=== PATIENT | female | born 1965 | race Caucasian/White ===

== ENCOUNTER 2022-08-31 11:08 | Outpatient (CLI) | payer OTHER, MEDICAID, SELFPAY ==
--- NOTE | ~2022-08-31 | XR_ITS ---
XR chest 2V DATE: 08/31/2022 11:22 INDICATION: Cough for 2 weeks. TECHNIQUE: PA and lateral views COMPARISON: None FINDINGS: Normal heart size. No hilar or mediastinal enlargement. The lungs are hyperinflated suggest ing COPD. No pulmonary infiltrate or consolidation, pleural effusion or pulmonary vascular congestion or pneumothorax is detected. Moderate sliding hiatal hernia. IMPRESSION: COPD; no active cardiopulmonary disease Moderate sliding hiatal hernia Reviewed, dictated and finalized at location B.
== END 2022-08-31 11:09 | disposition home or self-care (01) ==
LOC: CHSIMG 11:11
PROVIDERS: PCP Physician Assistant; Visit Provider Nurse Practitioner Family
DX: R06.09 Other forms of dyspnea (principal); R05.9 Cough, unspecified; J44.9 Chronic obstructive pulmonary disease, unspecified; K44.9 Diaphragmatic hernia without obstruction or gangrene
CPT/HCPCS: 71046

== ENCOUNTER 2022-10-13 11:59 | Outpatient (CLI) | payer OTHER, SELFPAY ==
[2022-10-13 12:17] LABS: Basophils Absolute Auto 0.08 K/mm3 (0.00-0.10); Eosinophils Absolute Auto 0.55 K/mm3 (0.02-0.50); Eosinophils Percent Auto 6.9 % (1.0-6.0); Hematocrit 38.1 % (35.0-49.0); Hemoglobin 12.7 g/dL (12.0-15.0); Immature Granulocyte Absolute 0.04 K/mm3 (0.00-0.00); Immature Granulocyte Percent A 0.5 % (0.0-0.0); Lymphocytes Absolute Auto 1.45 K/mm3 (1.10-4.50); Lymphocytes Percent Auto 18.2 % (18.0-42.0); Mean Corpuscular HGB Conc 33.3 g/dL (32.0-36.0); Mean Corpuscular Hemoglobin 33.6 pg (27.0-31.0); Mean Corpuscular Volume 100.8 fL (78.0-102.0); Mean Platelet Volume 8.1 fl (9.2-11.8); Monocytes Absolute Auto 0.72 K/mm3 (0.10-0.90); Neutrophils Absolute Auto 5.1 K/mm3 (1.7-7.2); Neutrophils Percent Auto 64.4 % (50.0-70.0); Platelet Count Result 331 K/mm3 (150-420); Red Blood Count 3.78 M/mm3 (4.20-5.40); Red Cell Distribution Width 11.9 % (11.6-14.4)
[2022-10-13 12:21] VITALS: PULSE 84; O2SAT 97
[2022-10-13 12:27] VITALS: PULSE 92; O2SAT 94
--- NOTE | 2022-10-13 13:33 | SIXMINWLK ---
Six Minute Walk Test PFT: Six Minute Walk Start: 10/13/22 13:02 Freq: Status: Active Protocol: RPE Activity Type Activity Date Activity User E-sign Co-sign Detail Recorded Client Recorded Date Recorded By Document 10/13/22 12:21 YANI [id number] 10/13/22 13:33 [employer] Document 10/13/22 12:27 YANI [id number] 10/13/22 13:33 KAB 10/13/22 10/13/22 12:21 12:27 Six Minute Walk Gender F F Age [age] Race White White Six Minute Walk Baseline -Pulse Rate (60-100 beats/min) 84 92 -Pulse Oximetry (90-100 %) 97 94 Number of Complete Laps ( 1 Lap = 100 500 Feet, Enter Total Feet) Number of Partial Laps (In Feet) 30 Total Distance Walked (Feet) 530 Six Minute Walk Comments Patient walked 530 feet. No noticeable shortness of breath. No drop in saturations .
--- NOTE | 2022-10-22 12:37 | WPDPFTINT ---
PFT Procedure Performed PFT Procedure Performed Spirometry with Pre/Post Bronchodilator Plethysmography (Lung Vol) Diffusing Cap (DLCO) Flow Vol Loop PFT Interpretation DOS: 10/13/2022 REQUESTING: Martínez Black APRN REASON FOR TESTING: Asthma PULMONARY FUNCTION TESTS Results are reliable and reproducible. Spirometry: The pre bronchodilator FEV1 is 1.5 L, 57% predicted, moderately reduced. The pre bronchodilator FEV1 is 3.17 L, 97%, normal. The FEV1/FVC ratio is 47% reduced. After bronchodilator there is a 21% increase in FEV1, 1.81 L, 69%. There is an 11% increase in the FVC, 3.53 L, 106% predicted. These are significant increases. The FEV1/FVC ratio after bronchodilators 51%. Lung volumes: Total lung capacity is 5.11 L, 111%, normal. The residual volume is 2.93 L, 142% predicted, consistent with moderate air trapping. The RV/TLC is increased, 48%. Airway resistance greatly elevated, 501%. Diffusion: DLCO is 20, 97% predicted, normal. DLCO/VA is 3.83, 99%, normal. Flow volume loop: There is scooping of the expiratory limb consistent with airflow obstruction. IMPRESSION: There is a moderate obstructive ventilatory impairment with an excellent response to bronchodilator. There is moderate air trapping. Normal diffusion. This pattern is consistent with asthma in the proper clinical setting. No prior studies available for review. Farhana Lopez MD
== END 2022-10-13 12:00 | disposition home or self-care (01) ==
PROVIDERS: PCP Physician Assistant; Visit Provider Nurse Practitioner Family
DX: J45.909 Unspecified asthma, uncomplicated (principal); R06.09 Other forms of dyspnea
CPT/HCPCS: 36415; 85025; 94060; 94726; 94729

== ENCOUNTER 2022-10-30 09:18 | Outpatient (CLI) | payer OTHER, SELFPAY | END 2022-10-30 09:19 | disposition home or self-care (01) | LOC: CHSLAB 09:20 | PROVIDERS: PCP Nurse Practitioner Family; Visit Provider Nurse Practitioner Family | DX: J45.909 Unspecified asthma, uncomplicated (principal) | CPT/HCPCS: 36415; 82785; 86003 ==

== ENCOUNTER 2023-12-31 13:35 | Outpatient (CLI) | payer OTHER, SELFPAY ==
[2023-12-31 13:46] LABS: Basophils Absolute Auto 0.13 K/mm3 (0.00-0.10); Basophils Percent Auto 1.5 % (0.0-1.0); Eosinophils Absolute Auto 0.68 K/mm3 (0.02-0.50); Eosinophils Percent Auto 7.9 % (1.0-6.0); Hematocrit 43.1 % (35.0-49.0); Immature Granulocyte Absolute 0.03 K/mm3 (0.00-0.00); Immature Granulocyte Percent A 0.4 % (0.0-0.0); Lymphocytes Absolute Auto 1.59 K/mm3 (1.10-4.50); Lymphocytes Percent Auto 18.6 % (18.0-42.0); Mean Corpuscular HGB Conc 34.8 g/dL (32-36); Mean Corpuscular Hemoglobin 32.5 pg (27.0-31.0); Mean Corpuscular Volume 93.3 fL (78.0-102.0); Mean Platelet Volume 8.1 fl (9.2-11.8); Monocytes Absolute Auto 0.99 K/mm3 (0.10-0.90); Monocytes Percent Auto 11.6 % (2.0-11.0); Neutrophils Absolute Auto 5.14 K/mm3 (1.70-7.20); Platelet Count Result 363 K/mm3 (150-420); Red Blood Count 4.62 M/mm3 (4.20-5.40); Red Cell Distribution Width 11.7 % (11.6-14.4); White Blood Count 8.6 K/mm3 (4.8-10.8)
== END 2023-12-31 13:36 | disposition home or self-care (01) ==
LOC: CHSLAB 13:37
PROVIDERS: PCP Nurse Practitioner Family; Visit Provider Nurse Practitioner Family
DX: J45.909 Unspecified asthma, uncomplicated (principal)
CPT/HCPCS: 36415; 85025

== ENCOUNTER 2024-03-24 13:39 | Outpatient (CLI) | payer OTHER, SELFPAY ==
--- NOTE | ~2024-03-24 | XR_ITS ---
Clinical Indication: Cough PA and lateral views of the chest: Comparison: 08/31/2022 Findings: The lungs are clear, without evidence of focal consolidation or pleural effusion. Cardiome diastinal silhouette is within normal limits. Stable small to moderate hiatal hernia. Osseous structu res intact. Impression: Clear lungs. Stable small to moderate hiatal hernia. Reviewed, dictated and finalized at location . Impression: Clear lungs. Stable small to moderate hiatal hernia.
== END 2024-03-24 13:40 | disposition home or self-care (01) ==
LOC: CHSIMG 13:41
PROVIDERS: PCP Nurse Practitioner Family; Visit Provider Nurse Practitioner Family
DX: R05.9 Cough, unspecified (principal); K44.9 Diaphragmatic hernia without obstruction or gangrene
CPT/HCPCS: 71046

== ENCOUNTER 2024-10-20 10:37 | Outpatient (CLI) | payer OTHER, SELFPAY ==
--- OUTSIDE RECORDS SUMMARY | 2024-10-20 10:40 | XMS_ITS ---
Author Organization Unknown Address [address] [place] [phone] Phone Care Team Providers Care Automation Operator Name Role Phone DAQUAN MARQUEZ Attending Unavailable IBETH TRAN PA-C Primary Unavailable Immunization Immunization Date Status Additional Notes Code Code System COVID-19, mRNA, LNP-S, PF, 1 00 mcg/0.5mL dose or 50 mcg/0.25mL dose 01/09/2021 Completed 207 CVX COVID-19, mRNA, LNP-S, PF, 1 00 mcg/0.5mL dose or 50 mcg/0.25mL dose 02/11/2021 Completed 207 CVX Social History Type Status Start Date End Date Code Code Syst em Smoking History Current every day smoker 757802692 SNOMED CT Sex Female Medications Medication Start Date End Date Route Frequency Dose Code Code System Medication Instructions Home Meds HYDROcodone bitartrate-acetaminophen 5MG-325MG Oral Tablet 09/04/2024 Unknown BY MOUTH NEEDED EVERY 4 HOURS 1 TABLET 420426 RxNorm TAKE 1 TABLET BY MOUTH NEEDED EVERY 4 HOURS FOR PAIN Airsupra 90 MCG/1 Actuation-80 MCG/1 Actuation Inhalation Aerosol Powder 09/04/2024 Unknown INHALA TION ONCE A DAY 1 unit(s) 9351832 RxNorm 1 EACH INHALAT ION ONCE A DAY Alendronate Sod 70MG Oral Tablet 09/04/2024 Unknown ORAL ONCE A WEEK 70 MILLIGR AMS RxNorm TAKE 70 MILLIGR AMS ORAL ONCE A WEEK Cymbalta 30MG Oral Capsule, Delayed Release 09/04/2024 Unknown ORAL ONCE A DAY 30 MILLIGR AMS 349852 RxNorm TAKE 30 MILLIGR AMS ORAL ONCE A DAY Cymbalta 60MG Oral Capsule, Delayed Release 09/04/2024 Unknown ORAL ONCE A DAY 60 MILLIGR AMS 096002 RxNorm TAKE 60 MILLIGR AMS ORAL ONCE A DAY Gabapentin 600MG Oral Tablet 09/04/2024 Unknown ORAL FOUR TIMES A DAY 900 MILLIGR AMS 031625 RxNorm TAKE 900 MILLIGR AMS ORAL FOUR TIMES A DAY Hyzaar 100MG-25MG Oral Tablet 09/04/2024 Unknown ORAL ONCE A DAY 1 unit(s) 868829 RxNorm TAKE 1 EACH ORAL ONCE A DAY LORazepam 0.5 MG Oral Tablet 09/04/2024 Unknown ORAL NEEDED 0.5 MILLIGR AMS RxNorm TAKE 0.5 MILLIGR AMS ORAL NEEDED Lasix 20MG Oral Tablet 09/04/2024 Unknown ORAL NEEDED DAILY 20 MILLIGR AMS RxNorm TAKE 20 MILLIGR AMS ORAL NEEDED DAILY Omeprazole 40MG Oral Capsule, Delayed Release 09/04/2024 Unknown ORAL ONCE A DAY 40 MILLIGR AMS 20020723 RxNorm TAKE 40 MILLIGR AMS ORAL ONCE A DAY SUMAtriptan Succinate 25MG Oral Tablet 09/04/2024 Unknown ORAL NEEDED 25 MILLIGR AMS 122141 RxNorm TAKE 25 MILLIGR AMS ORAL NEEDED Symbicort 80/4.5 80MCG-4.5MCG/1 Actua Inhalation Aerosol Liquid 09/04/2024 Unknown INHALA TION TWICE A DAY 2 unit(s) 6170164 RxNorm 2 EACH INHALAT ION TWICE A DAY Ventolin HFA 0.09MG/1Actuation Inhalation Suspension 09/04/2024 Unknown INHALA TION NEEDED EVERY 4 HOURS 2 unit(s) 966852 RxNorm 2 EACH INHALAT ION NEEDED EVERY 4 HOURS Vitamin D 2000 IU Oral Capsule, Liquid Filled 09/04/2024 Unknown ORAL ONCE A DAY 2000 IU 018814 RxNorm TAKE 2000 IU ORAL ONCE A DAY diphenhydrAMINE 25MG Oral Capsule 09/04/2024 Unknown ORAL NEEDED EVERY 6 HOURS 25 MILLIGR AMS 0288829 RxNorm TAKE 25 MILLIGR AMS ORAL NEEDED EVERY 6 HOURS Ferrous Sulfate 325 MG Oral Tablet, Enteric Coated 09/04/2024 Unknown BY MOUTH ONCE A DAY 1 TABLET 841193 RxNorm TAKE 1 TABLET BY MOUTH ONCE A DAY Assessment You had the following problems:FIBROMYALGIA Hospital Discharge Instructions Should you have any questions prior to discharge, please contact a member of your healthcare team. If you have left the hospital and have any questions, please contact your primary care physician. 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 (SNOMED-CT: null) Active 746467 RxNorm CONTRAST MEDIA, IODINE RELATED anaphylaxis (SNOMED-CT: null) Active 038003113 SNOMED-CT CONTRAST ALLERGY PREMED PACK Moderate Active Plan of Treatment Casie New Patient Visit 09/28/2023 Stress Test Treadmill 09/30/2023 Casie Established Visit 11/30/2023 EGD/Lap Felicity w/IOC 02/28/2024 Cholangiography Intraoperative 02/28/20 24 EGD/Lap Felicity w/IOC 02/28/2024 Cholangiography Intraoperative 02/28/20 24 NM Hepatobiliary Gall Bladder (04720) 0 02/02/2024 EGD/Lap Felicity w/IOC 09/04/2024 Cholangiography Intraoperative 09/05/19 25 EGD/Lap Felicity w/IOC 09/04/2024 Cholangiography Intraoperative 09/05/19 25 US Abdomen Complete (55059) 01/17/2024 Encounters Encounter Diagnosis Start Date Code Code Sys tem Palpitations 08/24/2023 SNMD-IT-CT Personal Care Team Section Performer Name Performer Role Active Date Inactive CHELSEA Felton PCP - Primary care physician 2023-11-30
--- OUTSIDE RECORDS SUMMARY | 2024-10-20 10:41 | XMS_ITS ---
Author Organization Unknown Address [address] [place] [phone] Phone Care Team Providers Care Pharmacy Salesperson Name Role Phone ELSA MARK Attending Unavailable IBETH TRAN PA-C Primary Unavailable Immunization Immunization Date Status Additional Notes Code Code System COVID-19, mRNA, LNP-S, PF, 1 00 mcg/0.5mL dose or 50 mcg/0.25mL dose 01/09/2021 Completed 207 CVX COVID-19, mRNA, LNP-S, PF, 1 00 mcg/0.5mL dose or 50 mcg/0.25mL dose 02/11/2021 Completed 207 CVX Results CBC W/ DIFF - Collect Date/T marcos: 09/28/2023 10:19 [facility] ID: [id number] [place], [place], [id number] LOINC: 59381-9 Test Value Unit Reference Range Code Code System Flag WBC 7.3 10^3uL L=4.8 H=10.8 RBC 4.86 10^6uL L=4.20 H=5.40 HEMOGLOBIN 14.9 g/dL L=12.0 H=16.0 718-7 LOINC HEMATOCRIT 42.6 VOL% L=37.0 H=47.0 4544-3 LOINC MCV 87.7 fL L=81.0 H=99.0 MCH 30.7 pg L=27.0 H=32.0 MCHC 35.0 g/dL L=32.0 H=36.0 PLATELETS 322 10^3uL L=100 H=400 41331-5 LOINC RDW 15.2 % L=11.7 H=15.5 %GRAN 72.1 % L=40.0 H=70.0 93396-7 LOINC H %LYMPH 16.4 % L=20.0 H=45.0 736-9 LOINC L %MONO 7.4 % L=2.0 H=10.0 14630-0 LOINC %EOS 2.5 % L=0.0 H=6.0 713-8 LOINC %BASO 1.2 % L=0.0 H=3.0 706-2 LOINC #NEUT 5.3 10^3uL L=1.9 H=7.6 70539-4 LOINC #LYMPH 1.2 10^3uL L=0.9 H=4.9 86943-8 LOINC #MONO 0.5 10^3uL L=0.1 H=0.9 96287-6 LOINC #EOS 0.2 10^3uL L=0.0 H=0.6 712-0 LOINC #BASO 0.09 10^3uL L=0.00 H=0.10 97483-2 LOINC #IM GRANS 0.0 10^3uL L=0.0 H=7.0 06106-7 LOINC %IM GRANS 0.4 % L=0.0 H=5.0 95906-7 LOINC %NRB 0.0 L=0.0 H=0.2 31306-2 LOINC #NRB 0.000 L=0.000 H=0.012 87796-0 LOINC MANUAL DIFF NOT INDICATED RBC MORPH NOT INDICATED CPK - Collect Date/Time: 10:19 [facility] ID: [id number] [place], [place], [id number] LOINC: 2156-6 Test Value Unit Reference Range Code Code System Flag CPK 264 U/L L=30 H=170 2157-6 LOINC H MAGNESIUM - Collect Date/Gerald e: 09/28/2023 10:19 [facility] ID: [id number] [place], [place], [id number] LOINC: 01663-5 Test Value Unit Reference Range Code Code System Flag MAGNESIUM 1.7 mg/dL L=1.6 H=2.3 53682-0 LOINC PHOSPHORUS - Collect Date/Ti me: 09/28/2023 10:19 [facility] ID: [id number] [place], [place], [id number] LOINC: 2777-1 Test Value Unit Reference Range Code Code System Flag PHOSPHORUS 4.8 mg/dL L=2.5 H=4.9 2777-1 LOINC COMPREHENSIVE METABOLIC PANE L - Collect Date/Time: 09/28/2023 10:19 [facility] ID: [id number] [place], [place], [id number] LOINC: 58516-8 Test Value Unit Reference Range Code Code System Flag FASTING NO BUN 9 mg/dL L=7 H=20 3094-0 LOINC CREATININE 0.70 mg/dL L=0.52 H=1.04 2160-0 LOINC GLUCOSE 111 mg/dL L=74 H=106 2345-7 LOINC H SODIUM 135 mmol/L L=132 H=144 2951-2 LOINC POTASSIUM 3.5 mmol/L L=3.5 H=5.1 2823-3 LOINC CHLORIDE 99 mmol/L L=98 H=107 2075-0 LOINC CO2 28.0 mmol/L L=22.0 H=30.0 8-9 LOINC ANION GAP 12 L=10 H=20 52604-9 LOINC OSMOLALITY 279 mOs/kG L=280 H=296 15288-1 LOINC L BUN/CREAT 12.9 3097-3 LOINC CALCIUM 10.3 mg/dL L=8.3 H=10.5 07983-7 LOINC AST 31 U/L L=15 H=46 1920-8 LOINC ALT 20 U/L L=9 H=72 1742-6 LOINC ALKALINE PHOS 65 U/L L=38 H=126 6768-6 LOINC TOTAL BILI 0.6 mg/dL L=0.2 H=1.3 1975-2 LOINC ALBUMIN 4.7 G/dL L=3.5 H=5.0 1751-7 LOINC TOTAL PROTEIN 7.7 g/L L=6.3 H=8.2 2885-2 LOINC A/G RATIO 1.6 27722-6 LOINC AGE 57 16421-8 LOINC eGFR NON-AFR 91 ml/min eGFR AFR AMER 110 ml/min TSH - Collect Date/Time: 10:19 [facility] ID: [id number] [place], [place], [id number] LOINC: 23531-2 Test Value Unit Reference Range Code Code System Flag TSH. 0.785 uIU/L L=0.470 H=4.680 97803-5 LOINC Social History Type Status Start Date End Date Code Code Syst em Smoking History Current every day smoker [id number] SNOMED CT Sex Female Vital Signs Vital Sign Value Unit [place] Value [place] Unit Date/Time Recent/Initial? Code Code System Body Mass Index 22.55 kg/m2 09/28/2023 09:07 Initial 74607 -5 LOINC Systolic Blood Pressure 143 mm[Hg] 09/28/2023 09:06 Initial 8480- 6 LOINC Diastolic Blood Pressure 84 mm[Hg] 09/28/2023 09:06 Initial 8462- 4 LOINC Body Surface Area 1.76 m2 09/28/2023 09:07 Initial 3140- 1 LOINC Height 170.180 0 cm 67.00 in 09/28/2023 09:07 Initial 8302- 2 LOINC O2 Saturation 96 % 2023 09:06 Initial 97654 -5 LOINC Pulse 110.0 /min 09/28/2023 09:06 Initial 8867- 4 LOINC Respiration 20 /min 09/28/19 09:06 Initial 9279- 1 LOINC Temperature 35.9 Melinda 96.6 F 09/28/19 24 09:06 Initial 8310- 5 LOINC Weight 65.32 kg 144.00 lbs 09/28/2023 09:07 Initial 61444 -7 LOINC Medications Medication Start Date End Date Route Frequency Dose Code Code System Medication Instructions Home Meds HYDROcodone bitartrate-acetaminophen 5MG-325MG Oral Tablet 09/04/2024 Unknown BY MOUTH NEEDED EVERY 4 HOURS 1 TABLET 505244 RxNorm TAKE 1 TABLET BY MOUTH NEEDED EVERY 4 HOURS FOR PAIN Airsupra 90 MCG/1 Actuation-80 MCG/1 Actuation Inhalation Aerosol Powder 09/04/2024 Unknown INHALA TION ONCE A DAY 1 unit(s) 2957414 RxNorm 1 EACH INHALAT ION ONCE A DAY Alendronate Sod 70MG Oral Tablet 09/04/2024 Unknown ORAL ONCE A WEEK 70 MILLIGR AMS RxNorm TAKE 70 MILLIGR AMS ORAL ONCE A WEEK Cymbalta 30MG Oral Capsule, Delayed Release 09/04/2024 Unknown ORAL ONCE A DAY 30 MILLIGR AMS 631813 RxNorm TAKE 30 MILLIGR AMS ORAL ONCE A DAY Cymbalta 60MG Oral Capsule, Delayed Release 09/04/2024 Unknown ORAL ONCE A DAY 60 MILLIGR AMS 053895 RxNorm TAKE 60 MILLIGR AMS ORAL ONCE A DAY Gabapentin 600MG Oral Tablet 09/04/2024 Unknown ORAL FOUR TIMES A DAY 900 MILLIGR AMS 847250 RxNorm TAKE 900 MILLIGR AMS ORAL FOUR TIMES A DAY Hyzaar 100MG-25MG Oral Tablet 09/04/2024 Unknown ORAL ONCE A DAY 1 unit(s) 419445 RxNorm TAKE 1 EACH ORAL ONCE A [...] 09/04/2024 Unknown ORAL NEEDED 25 MILLIGR AMS 249893 RxNorm TAKE 25 MILLIGR AMS ORAL NEEDED Symbicort 80/4.5 80MCG-4.5MCG/1 Actua Inhalation Aerosol Liquid 09/04/2024 Unknown INHALA TION TWICE A DAY 2 unit(s) 6531129 RxNorm 2 EACH INHALAT ION TWICE A DAY Ventolin HFA 0.09MG/1Actuation Inhalation Suspension 09/04/2024 Unknown INHALA TION NEEDED EVERY 4 HOURS 2 unit(s) 175346 RxNorm 2 EACH INHALAT ION NEEDED EVERY 4 HOURS Vitamin D 2000 IU Oral Capsule, Liquid Filled 09/04/2024 Unknown ORAL ONCE A DAY 2000 IU 039519 RxNorm TAKE 2000 IU ORAL ONCE A DAY diphenhydrAMINE 25MG Oral Capsule 09/04/2024 Unknown ORAL NEEDED EVERY 6 HOURS 25 MILLIGR AMS 0891592 RxNorm TAKE 25 MILLIGR AMS ORAL NEEDED EVERY 6 HOURS Ferrous Sulfate 325 MG Oral Tablet, Enteric Coated 09/04/2024 Unknown BY MOUTH ONCE A DAY 1 TABLET 779544 RxNorm TAKE 1 TABLET BY MOUTH ONCE A DAY Assessment You had the following problems:FIBROMYALGIA Hospital Discharge Instructions Should you have any questions prior to discharge, please contact a member of your healthcare team. If you have left the hospital and have any questions, please contact your primary care physician. Reason For Referral No Data Found Procedures Procedure Name Date Status Code Code Syste m Rotator cuff completed 8659064 SNOMEDCT Problems Problem Start Date Resolved Date Status Code Code System FIBROMYALGIA active 851902659 SNOMED- CT Allergies and Adverse Reactions Allergy Substance Reaction Severity Start Date Concern Status Code Code System 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 (SNOMED-CT: null) Active 610798 RxNorm CONTRAST MEDIA, IODINE RELATED anaphylaxis (SNOMED-CT: null) Active 936069035 SNOMED-CT CONTRAST ALLERGY PREMED PACK Moderate Active Plan of Treatment Elsa New Patient Visit 09/28/2023 Stress Test Treadmill 09/30/2023 Elsa Established Visit 11/30/2023 EGD/Lap Felicity w/IOC 02/28/2024 Cholangiography Intraoperative 02/28/20 24 EGD/Lap Felicity w/IOC 02/28/2024 Cholangiography Intraoperative 02/28/20 24 NM Hepatobiliary Gall Bladder (27379) 0 02/02/2024 EGD/Lap Felicity w/IOC 09/04/2024 Cholangiography Intraoperative 09/05/19 25 EGD/Lap Felicity w/IOC 09/04/2024 Cholangiography Intraoperative 09/05/19 25 US Abdomen Complete (80914) 01/17/2024 Encounters Encounter Diagnosis Start Date Code Code Sys tem Fibromyalgia 09/28/2023 SNOMED-CT Personal Care Team Section Performer Name Performer Role Active Date Inactive CHELSEA Felton PCP - Primary care physician 2023-11-30
--- OUTSIDE RECORDS SUMMARY | 2024-10-20 10:41 | XMS_ITS ---
Author Organization Unknown Address [address] [place] [phone] Phone Care Team Providers Care Software Development Project Manager Name Role Phone TYSON Kothari Attending Unavailable SHAKIRA ALCAZAR Primary Unavailable Immunization Immunization Date Status Additional Notes Code Code System COVID-19, mRNA, LNP-S, PF, 1 00 mcg/0.5mL dose or 50 mcg/0.25mL dose 01/09/2021 Completed 207 CVX COVID-19, mRNA, LNP-S, PF, 1 00 mcg/0.5mL dose or 50 mcg/0.25mL dose 02/11/2021 Completed 207 CVX Social History Type Status Start Date End Date Code Code Syst em Smoking History Current every day smoker 045574803 SNOMED CT Sex Female Medications Medication Start Date End Date Route Frequency Dose Code Code System Medication Instructions Home Meds HYDROcodone bitartrate-acetaminophen 5MG-325MG Oral Tablet 09/04/2024 Unknown BY MOUTH NEEDED EVERY 4 HOURS 1 TABLET 078920 RxNorm TAKE 1 TABLET BY MOUTH NEEDED EVERY 4 HOURS FOR PAIN Airsupra 90 MCG/1 Actuation-80 MCG/1 Actuation Inhalation Aerosol Powder 09/04/2024 Unknown INHALA TION ONCE A DAY 1 unit(s) 4544534 RxNorm 1 EACH INHALAT ION ONCE A DAY Alendronate Sod 70MG Oral Tablet 09/04/2024 Unknown ORAL ONCE A WEEK 70 MILLIGR AMS RxNorm TAKE 70 MILLIGR AMS ORAL ONCE A WEEK Cymbalta 30MG Oral Capsule, Delayed Release 09/04/2024 Unknown ORAL ONCE A DAY 30 MILLIGR AMS 209312 RxNorm TAKE 30 MILLIGR AMS ORAL ONCE A DAY Cymbalta 60MG Oral Capsule, Delayed Release 09/04/2024 Unknown ORAL ONCE A DAY 60 MILLIGR AMS 057719 RxNorm TAKE 60 MILLIGR AMS ORAL ONCE A DAY Gabapentin 600MG Oral Tablet 09/04/2024 Unknown ORAL FOUR TIMES A DAY 900 MILLIGR AMS 758281 RxNorm TAKE 900 MILLIGR AMS ORAL FOUR TIMES A DAY Hyzaar 100MG-25MG Oral Tablet 09/04/2024 Unknown ORAL ONCE A DAY 1 unit(s) 074111 RxNorm TAKE 1 EACH ORAL ONCE A [...] 09/04/2024 Unknown ORAL NEEDED 25 MILLIGR AMS 186206 RxNorm TAKE 25 MILLIGR AMS ORAL NEEDED Symbicort 80/4.5 80MCG-4.5MCG/1 Actua Inhalation Aerosol Liquid 09/04/2024 Unknown INHALA TION TWICE A DAY 2 unit(s) 7703041 RxNorm 2 EACH INHALAT ION TWICE A DAY Ventolin HFA 0.09MG/1Actuation Inhalation Suspension 09/04/2024 Unknown INHALA TION NEEDED EVERY 4 HOURS 2 unit(s) 265349 RxNorm 2 EACH INHALAT ION NEEDED EVERY 4 HOURS Vitamin D 2000 IU Oral Capsule, Liquid Filled 09/04/2024 Unknown ORAL ONCE A DAY 2000 IU 309697 RxNorm TAKE 2000 IU ORAL ONCE A DAY diphenhydrAMINE 25MG Oral Capsule 09/04/2024 Unknown ORAL NEEDED EVERY 6 HOURS 25 MILLIGR AMS 7913204 RxNorm TAKE 25 MILLIGR AMS ORAL NEEDED EVERY 6 HOURS Ferrous Sulfate 325 MG Oral Tablet, Enteric Coated 09/04/2024 Unknown BY MOUTH ONCE A DAY 1 TABLET 076780 RxNorm TAKE 1 TABLET BY MOUTH ONCE [...] Date Status Code Code System FIBROMYALGIA active 281262935 SNOMED- CT Allergies and Adverse Reactions Allergy Substance Reaction Severity Start Date Concern Status Code Code System 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 (SNOMED-CT: null) Active 413461 RxNorm CONTRAST MEDIA, IODINE RELATED anaphylaxis (SNOMED-CT: null) Active 456331754 SNOMED-CT CONTRAST ALLERGY PREMED PACK Moderate Active Plan of Treatment Casie New Patient Visit 09/28/2023 Stress Test Treadmill 09/30/2023 Casie Established Visit 11/30/2023 EGD/Lap Felicity w/IOC 02/28/2024 Cholangiography Intraoperative 02/28/20 24 EGD/Lap Felicity w/IOC 02/28/2024 Cholangiography Intraoperative 02/28/20 24 NM Hepatobiliary Gall Bladder (60235) 0 02/02/2024 EGD/Lap Felicity w/IOC 09/04/2024 Cholangiography Intraoperative 09/05/19 25 EGD/Lap Felicity w/IOC 09/04/2024 Cholangiography Intraoperative 09/05/19 25 US Abdomen Complete (29672) 01/17/2024 Personal Care Team Section Performer Name Performer Role Active Date Inactive CHELSEA Felton PCP - Primary care physician 2023-11-30
--- OUTSIDE RECORDS SUMMARY | 2024-10-20 10:41 | XMS_ITS ---
Author Organization Unknown Address [address] [place] [address] [phone] Phone Care Team Providers Care Welfare Investigator Name Role Phone ELSA FLORES Attending Unavailable NO PCP Primary Unavailable Immunization Immunization Date Status Additional Notes Code Code System COVID-19, mRNA, LNP-S, PF, 1 00 mcg/0.5mL dose or 50 mcg/0.25mL dose 01/09/2021 Completed 207 CVX COVID-19, mRNA, LNP-S, PF, 1 00 mcg/0.5mL dose or 50 mcg/0.25mL dose 02/11/2021 Completed 207 CVX Results CPK - Collect Date/Time: 11:17 [facility] ID: [id number] [address] [place] [address], [phone] LOINC: 2157-6 Test Value Unit Reference Range Code Code System Flag CPK 240 U/L L=30 H=170 2157-6 LOINC H ALDOLASE(REF) - Collect Date /Time: 11/30/2023 11:17 [facility] ID: [id number] [address] [place] [address], [phone] LOINC: 1761-6 Test Value Unit Reference Range Code Code System Flag Aldolase 5.1 3.3-10.3 1761-6 LOINC Social History Type Status Start Date End Date Code Code Syst em Smoking History Current every day smoker 767141923 SNOMED CT Sex Female Vital Signs Vital Sign Value Unit Hidalgo Value Hidalgo Unit Date/Time Recent/Initial? Code Code System Body Mass Index 21.61 kg/m2 11/30/2023 11:33 Initial 89078 -5 [facility] Systolic Blood Pressure 126 mm[Hg] 11/30/2023 11:32 Initial 8480- 6 [facility] Diastolic Blood Pressure 81 mm[Hg] 11/30/2023 11:32 Initial 8462- 4 [facility] Body Surface Area 1.72 m2 11/30/2023 11:33 Initial 3140- 1 [facility] Height 170.180 0 cm 67.00 in 11/30/2023 11:33 Initial 8302- 2 [facility] O2 Saturation 98 % 2023 11:32 Initial 61786 -5 [facility] Pulse 103.0 /min 11/30/2023 11:32 Initial 8867- 4 [facility] Temperature 36.3 Melinda 97.3 F 11/30/19 11:32 Initial 8310- 5 [facility] Weight 62.60 kg 138.00 lbs 11/30/2023 11:33 Initial 51174 -7 [facility] Medications Medication Start Date End Date Route Frequency Dose Code Code System Medication Instructions Home Meds HYDROcodone bitartrate-acetaminophen 5MG-325MG Oral Tablet 09/04/2024 Unknown BY MOUTH NEEDED EVERY 4 HOURS 1 TABLET 527179 RxNorm TAKE 1 TABLET BY MOUTH NEEDED EVERY 4 HOURS FOR PAIN Airsupra 90 MCG/1 Actuation-80 MCG/1 Actuation Inhalation Aerosol Powder 09/04/2024 Unknown INHALA TION ONCE A DAY 1 unit(s) 3863216 RxNorm 1 EACH INHALAT ION ONCE A DAY Alendronate Sod 70MG Oral Tablet 09/04/2024 Unknown ORAL ONCE A WEEK 70 MILLIGR AMS RxNorm TAKE 70 MILLIGR AMS ORAL ONCE A WEEK Cymbalta 30MG Oral Capsule, Delayed Release 09/04/2024 Unknown ORAL ONCE A DAY 30 MILLIGR AMS 930306 RxNorm TAKE 30 MILLIGR AMS ORAL ONCE A DAY Cymbalta 60MG Oral Capsule, Delayed Release 09/04/2024 Unknown ORAL ONCE A DAY 60 MILLIGR AMS 299165 RxNorm TAKE 60 MILLIGR AMS ORAL ONCE A DAY Gabapentin 600MG Oral Tablet 09/04/2024 Unknown ORAL FOUR TIMES A DAY 900 MILLIGR AMS 069975 RxNorm TAKE 900 MILLIGR AMS ORAL FOUR TIMES A DAY Hyzaar 100MG-25MG Oral Tablet 09/04/2024 Unknown ORAL ONCE A DAY 1 unit(s) 631332 RxNorm TAKE 1 EACH ORAL ONCE A [...] 09/04/2024 Unknown ORAL NEEDED 25 MILLIGR AMS 208728 RxNorm TAKE 25 MILLIGR AMS ORAL NEEDED Symbicort 80/4.5 80MCG-4.5MCG/1 Actua Inhalation Aerosol Liquid 09/04/2024 Unknown INHALA TION TWICE A DAY 2 unit(s) 2962956 RxNorm 2 EACH INHALAT ION TWICE A DAY Ventolin HFA 0.09MG/1Actuation Inhalation Suspension 09/04/2024 Unknown INHALA TION NEEDED EVERY 4 HOURS 2 unit(s) 616293 RxNorm 2 EACH INHALAT ION NEEDED EVERY 4 HOURS Vitamin D 2000 IU Oral Capsule, Liquid Filled 09/04/2024 Unknown ORAL ONCE A DAY 2000 IU 362900 RxNorm TAKE 2000 IU ORAL ONCE A DAY diphenhydrAMINE 25MG Oral Capsule 09/04/2024 Unknown ORAL NEEDED EVERY 6 HOURS 25 MILLIGR AMS 3171019 RxNorm TAKE 25 MILLIGR AMS ORAL NEEDED EVERY 6 HOURS Ferrous Sulfate 325 MG Oral Tablet, Enteric Coated 09/04/2024 Unknown BY MOUTH ONCE A DAY 1 TABLET 249203 RxNorm TAKE 1 TABLET BY MOUTH ONCE [...] Date Status Code Code System FIBROMYALGIA active 377578587 SNOMED- CT Allergies and Adverse Reactions Allergy Substance Reaction Severity Start Date Concern Status Code Code System 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 (SNOMED-CT: null) Active 201748 RxNorm CONTRAST MEDIA, IODINE RELATED anaphylaxis (SNOMED-CT: null) Active 452620036 SNOMED-CT CONTRAST ALLERGY PREMED PACK Moderate Active Plan of Treatment Elsa New Patient Visit 09/28/2023 Stress Test Treadmill 09/30/2023 Elsa Established Visit 11/30/2023 EGD/Lap Felicity w/IOC 02/28/2024 Cholangiography Intraoperative 02/28/20 24 EGD/Lap Felicity w/IOC 02/28/2024 Cholangiography Intraoperative 02/28/20 24 NM Hepatobiliary Gall Bladder (85252) 0 02/02/2024 EGD/Lap Felicity w/IOC 09/04/2024 Cholangiography Intraoperative 09/05/19 25 EGD/Lap Felicity w/IOC 09/04/2024 Cholangiography Intraoperative 09/05/19 25 US Abdomen Complete (83841) 01/17/2024 Encounters Encounter Diagnosis Start Date Code Code Sys tem 11/30/2023 SNOMED-CT Personal Care Team Section Performer Name Performer Role Active Date Inactive CHELSEA Felton PCP - Primary care physician 2023-11-30
--- OUTSIDE RECORDS SUMMARY | 2024-10-20 10:41 | XMS_ITS | Clinical Summary ---
Author Organization [facility] Address [address] [place] [address] Care Team Providers Care Summer Intern Name Role Phone Heather Garcia Primary Care Provider [phone] Allergies Active Allergy Reactions Criticality Noted Date Comments Methadone Swelling,Angioedema 08/12/2021 Prednisone & Diphenhydramine Shortness of Breath High 12/01/2023 Pregabalin Anaphylaxis High 12/01/2023 Shellfish-Derived Products Swelling 2 Medications DULoxetine 60 MG capsule Take 1 capsule (60 mg total) by mouth daily. Active ferrous sulfate, 65 mg elemental, 325 (65 FE) MG tablet Take 1 tablet (325 mg total) by mouth daily with breakfast. Active SYMBICORT 160-4.5 MCG/ACT inhaler Inhale 2 puffs into the lungs 2 (two) times daily. 3 Active albuterol sulfate HFA 108 (90 Base) MCG/ACT inhaler Inhale 2 puffs into the lungs every 4 (four) hours as needed. 3 Active gabapentin (NEURONTIN) 300 MG capsule Take 1 capsule (300 mg total) by mouth 3 (three) times daily. 3 Active loratadine (CLARITIN) 10 MG tablet Take 1 tablet (10 mg total) by mouth daily. 3 Active zafirlukast (ACCOLATE) 20 MG Tab Take 1 tablet (20 mg total) by mouth 2 (two) times daily before meals. 3 Active SPIRIVA RESPIMAT 2.5 MCG/ACT inhaler (SPIRIVA RESPIMAT) Inhale 2 puffs into the lungs daily. 3 Active fluticasone propionate (FLONASE) 50 MCG/ACT nasal spray 4 Active furosemide (LASIX) 20 MG tablet Take 1 tablet (20 mg total) by mouth daily. 4 Active alendronate (FOSAMAX) 70 MG tablet Take 1 tablet (70 mg total) by mouth every 7 days. 4 Active cyclobenzaprine (FLEXERIL) 10 MG tablet Take 1 tablet (10 mg total) by mouth 3 (three) times daily as needed. 4 Active LORazepam (ATIVAN) 0.5 MG tablet Take 1 tablet (0.5 mg total) by mouth 2 (two) times daily as needed. 4 Active losartan-hydroC HLOROthiazide (HYZAAR) 100-25 MG tablet Take 1 tablet by mouth daily. 4 Active naloxone (NARCAN) 4 MG/0.1ML nasal spray 1 spray by Nasal route as needed for Opioid reversal. may repeat every 2 to 3 minutes in alternating nostrils until medical assistance becomes available 1 each 4 11/17/19 25 Active Active Problems Problem Noted Date Diagnosed Date Chronic right shoulder pain 12/01/2023 Right shoulder pain 06/02/2023 S/P right rotator cuff repair 06/02/2023 Partial nontraumatic tear of right rotator cuff 03/31/2023 Overview (03/31/2023): Added automatically from request for surgery [id number] Impingement syndrome, shoulder, right 03/31/2023 Overview (03/31/2023): Added automatically from request for surgery [id number] Superior glenoid labrum lesion of right shoulder 12/24/2022 Overview (12/24/2022): Added automatically from request for surgery [id number] Shoulder impingement syndrome, left 12/07/2022 Respiratory failure ([facility]) 04/21/2022 Asthma exacerbation ([facility]) 04/21/2022 Status asthmaticus ([facility]) 08/11/2021 Family History Medical History Relation Comments No Known Problems Brother 1 No Known Problems Brother 2 Cancer Father Liver Disease Mother Relation Status Comments Brother 1 Alive Brother 2 Alive Father Mother Social History Tobacco Use Types Packs/Day Years Used Date Smoking Tobacco: Every Day Cigarettes 0.5 40 Smokeless Tobacco: Never Tobacco Cessation:Ready to Q uit: Not Asked; Counseling Given: Not Answered Alcohol Use Standard Drinks/Week Comments Yes 0 (1 standard drink = 0.6 oz pur e alcohol) socially Comments No Sex and Gender Information Value Date Recorded Sex Assigned at Not on file 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 Gender Identity Not on file Sexual Orientation Not on file Last Filed Vital Signs Vital Sign Reading Time Taken Comments Blood Pressure 127/71 04/05/2023 3:30 PM CDT Pulse 81 04/05/2023 3:30 PM CDT Temperature 36.6 C (97.8 F) 04/05/2023 3:30 PM CDT Respiratory Rate 16 04/05/2023 3:30 PM CDT Oxygen Saturation 95% 04/05/2023 3:30 PM CDT Inhaled Oxygen Concentration - - Weight 62.6 kg (138 lb) 12/01/2023 11:25 AM CDT Height 170.2 cm (5' 7 ) 12/01/2023 11:25 AM CDT Body Mass Index 21.61 12/01/2023 11:25 AM CDT Plan of Treatment Health Maintenance Due Date Last Done Comments Cervical Cancer Screening Pa p Smear (Age 30 to 64) Every 3 Years 1964 Colorectal Cancer Screening Colonoscopy (10 Years) 1964 Annual Physical 12/29/1967 Hepatitis C 1982 DTaP, Tdap and Td Vaccines ( 1 - Tdap) 12/29/1983 Pneumococcal Vaccine: 50+ Years (1 of 2 - PCV) 12/29/1983 Cervical Cancer Screening Pa p with HPV Testing (Age 30 to 64) Every 5 Years 1994 Cervical Cancer Screening wi th HPV 1994 Mammogram Screening 2004 Lung Cancer Screening 2014 Zoster Vaccines (1 of 2) 2014 COVID-19 Vaccine (3 2023-2 5 season) 2024 02/11/2021, 01/09/2021 Meningococcal B Vaccine Aged Out No l onger eligible based on patient's age to complete this topic Meningococcal Vaccine Aged Out No joss ryne eligible based on patient's age to complete this topic RSV Immunizations Under 20 Months Aged Out No longer eligible b ased on patient's age to complete this topic Goals Goal Patient Goal Type Associated Problems Recent Progress Patient-Stated? Author Patient will return to prior living situation and remain independent in ADLs upon discharge from hospital General Tran Goode range management specialist - family caregiver with be involved in care transitions and discharge planning Lifestyle Veda Franks RN Medical Devices Implanted Type Area Mortgage Loan Counselor Device Identifier Shelf Expiration Date Model / Serial / Lot Suture [place], Swivelock Tenodesis, Biocomposite 7x19.1mm - [id number] Implanted:Qty: 1 on 01/20/2023 by Ej Cool MD at [facility] [place] Left: Shoulder [employer] [id number] 08/11/2026 AR-1662BC C-7 / / [id number] [place] Suture Bio-Swivelock C Arthrex White/Black 4.75 X 19.1mm - [id number] Implanted:Qty: 1 on 01/20/2023 by Ej Cool MD at [facility] [place] Left: Shoulder [employer] [id number] 08/11/2026 ALINA-2324BC CTT / / [id number] [place] Suture Bio-Swivelock C [employer] - [id number] Implanted:Qty: 1 on 01/20/2023 by Ej Cool MD at [facility] [place] Left: Shoulder [employer] [id number] 07/14/[address] ALINA-[address]BC CT / / [id number] [place] Suture Bio-Swivelock Arthrex 5.5 X 24.5 - [id number] Implanted:Qty: 1 on 01/20/2023 by Ej Cool MD at [facility] [place] Left: Shoulder [employer] [id number] 04/13/2026 ALINA-2323BPanfilo M / / [id number] [place] Suture Bio-Swivelock Arthrex 5.5 X 24.5 - [id number] Implanted:Qty: 1 on 01/20/2023 by Ej Cool MD at [facility] [place] Left: Shoulder [employer] [id number] 04/13/2026 AR-2323BC M / / [id number] [place] Suture Swivelock Self Punch 24.5mm Biocomposite - [id number] Implanted:Qty: 1 on 04/05/2023 by Ej Cool MD at [facility] [place] Right: Shoulder [employer] [id number] 10/11/2026 AR-2324BC M / / [id number] [place] Suture Swivelock Self Punch 24.5mm Biocomposite - [id number] Implanted:Qty: 1 on 04/05/2023 by Ej Cool MD at [facility] [place] Right: Shoulder [employer] [id number] 11/11/2026 AR-2324BC M / / [id number] [place] Suture Bio-Swivelock Arthrex 5.5 X 24.5 - [id number] Implanted:Qty: 1 on 04/05/2023 by Ej Cool MD at [facility] [place] Right: Shoulder [employer] [id number] 02/11/2026 AR-2323BC M / / [id number] Suture [place], Swivelock Tenodesis, Biocomposite 7x19.1mm - [id number] Implanted:Qty: 1 on 04/05/2023 by Ej Cool MD at [facility] [place] Right: Shoulder [employer] [id number] 04/13/2026 AR-1662BC C-7 / / [id number] [place] Suture Bio-Swivelock C [employer] - [id number] Implanted:Qty: 1 on 04/05/2023 by Ej Cool MD at [facility] [place] Right: Shoulder [employer] [id number] 11/11/[address] / / [id number] [place] Suture Bio-Swivelock C Arthrex White/Black 4.75 X 19.1mm - [id number] Implanted:Qty: 1 on 04/05/2023 by Ej Cool MD at [facility] [place] Right: Shoulder [employer] [id number] 02/11/2026 AR-2324BC CTT / / [id number] [place] Suture Bio-Swivelock C Arthrex White/Black 4.75 X 19.1mm - [id number] Implanted:Qty: 1 on 04/05/2023 by Ej Cool MD at [facility] [place] Right: Shoulder [employer] [id number] 02/11/2026 AR-2324BC CTT / / [id number] Insurance [employer] Advance Directives * Full Code (Latest Code Status on File) Date Activated Date Inactivated Comments 04/21/2022 3:27 PM 04/27/2022 3:14 PM * Full Code Date Activated Date Inactivated Comments 08/14/2021 8:52 AM 08/14/2021 3:51 PM Care Teams Summer Intern Relationship Specialty Start Date End Date Heather Garcia PA [address] [place] [address] PCP - General PHYSICIAN TEMPLE MEAT CUTTER 11/23/22
--- OUTSIDE RECORDS SUMMARY | 2024-10-20 10:41 | XMS_ITS | Referral Summary ---
Author Organization [facility] Address [address] [place] [id number] Care Team Providers Care Patient Registration Supervisor Name Role Phone Heather Garcia Primary Care Provider [phone] Allergies Active Allergy Reactions Criticality Noted Date Comments Iodinated Contrast Media Anaphylaxis High 07/11/2024 Shellfish Containing Products Swelling Medium 2021 Medications albuterol HFA (PROVENTIL HFA,VENTOLIN HFA,PROAIR HFA) 90 mcg/actuation inhaler Inhale 2 puffs every 4 (four) hours as needed Active Airsupra 90-80 mcg/actuation HFA aerosol inhaler 2 puffs 4 Active alendronate (FOSAMAX) 70 mg tablet Take 1 tablet (70 mg total) by mouth every 7 days Active atorvastatin (LIPITOR) 20 mg tablet Take 1 tablet (20 mg total) by mouth daily [address] (VOLTAREN) 75 mg EC tablet Take 1 tablet (75 mg total) by mouth 2 (two) times a day [address] (CYMBALTA) 30 mg capsule Take 1 capsule (30 mg total) by mouth daily 5 Active furosemide (LASIX) 20 mg tablet Take 1 tablet (20 mg total) by mouth daily as needed Takes based on swelling 4 Active gabapentin (NEURONTIN) 300 mg capsule Take 1 capsule (300 mg total) by mouth 3 (three) times a day 3 Active loratadine (CLARITIN) 10 mg tablet Take 1 tablet (10 mg total) by mouth daily 3 Active HYDROcodone-bonifacio taminophen (NORCO) 5-325 mg per tablet Take 1 tablet by mouth 2 (two) times a day as needed 5 Active losartan-hydroc hlorothiazide (HYZAAR) 100-25 mg per tablet Take 1 tablet by mouth daily Active naloxone (NARCAN) 4 mg/actuation spray,non-aeros ol Administer 1 spray into affected nostril(s) as needed Active omeprazole (PriLOSEC) 40 mg capsule Take 1 capsule (40 mg total) by mouth daily 5 Active SUMAtriptan (IMITREX) 25 mg tablet Take 1 tablet (25 mg total) by mouth once as needed 5 Active Spiriva Respimat 2.5 mcg/actuation inhaler Inhale 2 puffs daily 3 Active zafirlukast (ACCOLATE) 20 mg tablet Take 1 tablet (20 mg total) by mouth 2 (two) times a day Active diphenhydrAMINE 25 mg capsule Take 3 tablet/capsule (75 mg total) by mouth 3 (three) times a day Active Active Problems Problem Noted Date Diagnosed Date Fibromyalgia 07/11/2024 Osteoarthritis 07/11/2024 Social History Tobacco Use Types Packs/Day Years Used Date Smoking Tobacco: Every Day Cigarettes Smokeless Tobacco: Never Tobacco Cessation:Ready to Q uit: Yes; Counseling Given: Yes Hunger Vital Sign Answer Date Recorded Within the past 12 months, y ou worried that your food would run out before you got the money to buy more. Never true 07/11/19 25 Within the past 12 months, t he food you bought just didn't last and you didn't have money to get more. Never true 07/11/2024 Comments Unknown Sex and Gender Information Value Date Recorded Sex Assigned at Not on file Legal Sex Female 6:49 PM CDT Gender Identity Not on file Sexual Orientation Not on file Last Filed Vital Signs Vital Sign Reading Time Taken Comments Blood Pressure 140/87 07/11/2024 8:11 AM PULL OUT OPERATOR Pulse 101 07/11/2024 8:11 AM PULL OUT OPERATOR Temperature 37.1 C (98.7 F) 07/11/2024 8:11 AM PULL OUT OPERATOR Respiratory Rate - - Oxygen Saturation - - Inhaled Oxygen Concentration - - Weight 66.7 kg (147 lb) 07/11/2024 8:11 AM PULL OUT OPERATOR Height 170.2 cm (5' 7 ) 07/11/2024 8:11 AM PULL OUT OPERATOR Body Mass Index 23.02 07/11/2024 8:11 AM PULL OUT OPERATOR Plan of Treatment Not on file Insurance [facility] Care Teams Patient Registration Supervisor Relationship Specialty Start Date End Date Heather [place] [address] PCP - General Emergency Medicine 07/11/24
--- OUTSIDE RECORDS SUMMARY | 2024-10-20 10:42 | XMS_ITS ---
Author Organization Unknown Address [address] [place] [phone] Phone Care Team Providers Care Sheeter Helper Name Role Phone DAQUAN MARQUEZ Attending Unavailable [...] em Smoking History Current every day smoker 392901604 SNOMED CT Sex Female Medications Medication Start Date End Date Route Frequency Dose Code Code System Medication Instructions Home Meds HYDROcodone bitartrate-acetaminophen 5MG-325MG Oral Tablet 09/04/2024 Unknown BY MOUTH NEEDED EVERY 4 HOURS 1 TABLET 321138 RxNorm TAKE 1 TABLET BY MOUTH NEEDED EVERY 4 HOURS FOR PAIN Airsupra 90 MCG/1 Actuation-80 MCG/1 Actuation Inhalation Aerosol Powder 09/04/2024 Unknown INHALA TION ONCE A DAY 1 unit(s) 6062725 RxNorm 1 EACH INHALAT ION ONCE A DAY Alendronate Sod 70MG Oral Tablet 09/04/2024 Unknown ORAL ONCE A WEEK 70 MILLIGR AMS RxNorm TAKE 70 MILLIGR AMS ORAL ONCE A WEEK Cymbalta 30MG Oral Capsule, Delayed Release 09/04/2024 Unknown ORAL ONCE A DAY 30 MILLIGR AMS 342825 RxNorm TAKE 30 MILLIGR AMS ORAL ONCE A DAY Cymbalta 60MG Oral Capsule, Delayed Release 09/04/2024 Unknown ORAL ONCE A DAY 60 MILLIGR AMS 851085 RxNorm TAKE 60 MILLIGR AMS ORAL ONCE A DAY Gabapentin 600MG Oral Tablet 09/04/2024 Unknown ORAL FOUR TIMES A DAY 900 MILLIGR AMS 043342 RxNorm TAKE 900 MILLIGR AMS ORAL FOUR TIMES A DAY Hyzaar 100MG-25MG Oral Tablet 09/04/2024 Unknown ORAL ONCE A DAY 1 unit(s) 739956 RxNorm TAKE 1 EACH ORAL ONCE A [...] 09/04/2024 Unknown ORAL NEEDED 25 MILLIGR AMS 100066 RxNorm TAKE 25 MILLIGR AMS ORAL NEEDED Symbicort 80/4.5 80MCG-4.5MCG/1 Actua Inhalation Aerosol Liquid 09/04/2024 Unknown INHALA TION TWICE A DAY 2 unit(s) 4544995 RxNorm 2 EACH INHALAT ION TWICE A DAY Ventolin HFA 0.09MG/1Actuation Inhalation Suspension 09/04/2024 Unknown INHALA TION NEEDED EVERY 4 HOURS 2 unit(s) 694330 RxNorm 2 EACH INHALAT ION NEEDED EVERY 4 HOURS Vitamin D 2000 IU Oral Capsule, Liquid Filled 09/04/2024 Unknown ORAL ONCE A DAY 2000 IU 082462 RxNorm TAKE 2000 IU ORAL ONCE A DAY diphenhydrAMINE 25MG Oral Capsule 09/04/2024 Unknown ORAL NEEDED EVERY 6 HOURS 25 MILLIGR AMS 5969930 RxNorm TAKE 25 MILLIGR AMS ORAL NEEDED EVERY 6 HOURS Ferrous Sulfate 325 MG Oral Tablet, Enteric Coated 09/04/2024 Unknown BY MOUTH ONCE A DAY 1 TABLET 081453 RxNorm TAKE 1 TABLET BY MOUTH ONCE [...] Date Status Code Code System FIBROMYALGIA active 394826200 SNOMED- CT Allergies and Adverse Reactions Allergy Substance Reaction Severity Start Date Concern Status Code Code System 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 (SNOMED-CT: null) Active 431003 RxNorm CONTRAST MEDIA, IODINE RELATED anaphylaxis (SNOMED-CT: null) Active 968933811 SNOMED-CT CONTRAST ALLERGY PREMED PACK Moderate Active Plan of Treatment Casie New Patient Visit 09/28/2023 Stress Test Treadmill 09/30/2023 Casie Established Visit 11/30/2023 EGD/Lap Felicity w/IOC 02/28/2024 Cholangiography Intraoperative 02/28/20 24 EGD/Lap Felicity w/IOC 02/28/2024 Cholangiography Intraoperative 02/28/20 24 NM Hepatobiliary Gall Bladder (11328) 0 02/02/2024 EGD/Lap Felicity w/IOC 09/04/2024 Cholangiography Intraoperative 09/05/19 25 EGD/Lap Felicity w/IOC 09/04/2024 Cholangiography Intraoperative 09/05/19 25 US Abdomen Complete (91827) 01/17/2024 Encounters Encounter Diagnosis Start Date Code Code Sys tem Chest pain, unspecified 11/23/2023 SN ED-CT Personal Care Team Section Performer Name Performer Role Active Date Inactive CHELSEA Felton PCP - Primary care physician 2023-11-30
--- OUTSIDE RECORDS SUMMARY | 2024-10-20 10:42 | XMS_ITS ---
Author Organization Unknown Address [id number] [place] [address] [phone] Phone Care Team Providers Care Asic Verification Engineer Name Role Phone TYSON Kothari Attending Unavailable NO PCP Primary Unavailable Immunization Immunization Date Status Additional Notes Code Code System COVID-19, mRNA, LNP-S, PF, 1 00 mcg/0.5mL dose or 50 mcg/0.25mL dose 01/09/2021 Completed 207 CVX COVID-19, mRNA, LNP-S, PF, 1 00 mcg/0.5mL dose or 50 mcg/0.25mL dose 02/11/2021 Completed 207 CVX Results NM HEPATOBILIARY W/ PHARM - Completed: 02/02/2024 09:35 LOINC: EXAM DESCRIPTION: NM HEPATOBILIARY W/ PHARM REASON FOR STUDY: Epigastric abdominal pain. RADIOPHARMACEUTICAL: 4.9 mCi Tc-99m mebrofenin and 1.3 ug sincalide via a right antecubital IV site. TECHNIQUE: Following the intravenous administration of the radiopharmaceutical, sequential abdominal images were obtained. COMPARISON: Abdominal ultrasound from 01/17/2024. FINDINGS: There is prompt, homogenous tracer localization throughout the liver. There is normal visualization of the intrahepatic ducts, common bile duct, and gallbladder. There is normal biliary to bowel transit. Following the slow intravenous administration of sincalide, the gallbladder ejection fraction was calculated and was 34 % (normal: greater than 40%, equivocal: 30- 40%, and abnormal: less than 30%). This calculation is by standard technique of subtracting minimum activity from the maximum activity and dividing by the maximum activity. When assessing objectively, there is filling of the gallbladder during initial 10 minutes following CCK with minimal excretion and clearance back to baseline. IMPRESSION: 1. No evidence of cystic duct obstruction. 2. Technically equivocal gallbladder ejection fraction of 34%, this raises the possibility of biliary dyskinesia or chronic cholecystitis. THIS IS AN ELECTRONICALLY VERIFIED FINAL REPORT 02/02/2024 10:11 AM - Electronically signed by Pastor Silva M.D. CH: ANNMARIE Report ID: [id number] Reading Location: [place] [address] Social History Type Status Start Date End Date Code Code Syst em Smoking History Current every day smoker [id number] SNOMED CT Sex Female Medications Medication Start Date End Date Route Frequency Dose Code Code System Medication Instructions Home Meds HYDROcodone bitartrate-acetaminophen 5MG-325MG Oral Tablet 09/04/2024 Unknown BY MOUTH NEEDED EVERY 4 HOURS 1 TABLET 413766 RxNorm TAKE 1 TABLET BY MOUTH NEEDED EVERY 4 HOURS FOR PAIN Airsupra 90 MCG/1 Actuation-80 MCG/1 Actuation Inhalation Aerosol Powder 09/04/2024 Unknown INHALA TION ONCE A DAY 1 unit(s) 6931532 RxNorm 1 EACH INHALAT ION ONCE A DAY Alendronate Sod 70MG Oral Tablet 09/04/2024 Unknown ORAL ONCE A WEEK 70 MILLIGR AMS RxNorm TAKE 70 MILLIGR AMS ORAL ONCE A WEEK Cymbalta 30MG Oral Capsule, Delayed Release 09/04/2024 Unknown ORAL ONCE A DAY 30 MILLIGR AMS 438908 RxNorm TAKE 30 MILLIGR AMS ORAL ONCE A DAY Cymbalta 60MG Oral Capsule, Delayed Release 09/04/2024 Unknown ORAL ONCE A DAY 60 MILLIGR AMS 848700 RxNorm TAKE 60 MILLIGR AMS ORAL ONCE A DAY Gabapentin 600MG Oral Tablet 09/04/2024 Unknown ORAL FOUR TIMES A DAY 900 MILLIGR AMS 403747 RxNorm TAKE 900 MILLIGR AMS ORAL FOUR TIMES A DAY Hyzaar 100MG-25MG Oral Tablet 09/04/2024 Unknown ORAL ONCE A DAY 1 unit(s) 279234 RxNorm TAKE 1 EACH ORAL ONCE A DAY LORazepam 0.5 MG Oral Tablet 09/04/2024 Unknown ORAL NEEDED 0.5 MILLIGR AMS 521453 RxNorm TAKE 0.5 MILLIGR AMS ORAL NEEDED [...] 09/04/2024 Unknown ORAL NEEDED 25 MILLIGR AMS 669034 RxNorm TAKE 25 MILLIGR AMS ORAL NEEDED Symbicort 80/4.5 80MCG-4.5MCG/1 Actua Inhalation Aerosol Liquid 09/04/2024 Unknown INHALA TION TWICE A DAY 2 unit(s) 1724364 RxNorm 2 EACH INHALAT ION TWICE A DAY Ventolin HFA 0.09MG/1Actuation Inhalation Suspension 09/04/2024 Unknown INHALA TION NEEDED EVERY 4 HOURS 2 unit(s) 053979 RxNorm 2 EACH INHALAT ION NEEDED EVERY 4 HOURS Vitamin D 2000 IU Oral Capsule, Liquid Filled 09/04/2024 Unknown ORAL ONCE A DAY 1999 IU 498749 RxNorm TAKE 2000 IU ORAL ONCE A DAY diphenhydrAMINE 25MG Oral Capsule 09/04/2024 Unknown ORAL NEEDED EVERY 6 HOURS 25 MILLIGR AMS 2282887 RxNorm TAKE 25 MILLIGR AMS ORAL NEEDED EVERY 6 HOURS Ferrous Sulfate 325 MG Oral Tablet, Enteric Coated 09/04/2024 Unknown BY MOUTH ONCE A DAY 1 TABLET 622180 RxNorm TAKE 1 TABLET BY MOUTH ONCE [...] Date Status Code Code System FIBROMYALGIA active 026923647 SNOMED- CT Allergies and Adverse Reactions Allergy Substance Reaction Severity Start Date Concern Status Code Code System 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 (SNOMED-CT: null) Active 813264 RxNorm CONTRAST MEDIA, IODINE RELATED anaphylaxis (SNOMED-CT: null) Active 967581957 SNOMED-CT CONTRAST ALLERGY PREMED PACK Moderate Active Plan of Treatment Casie New Patient Visit 09/28/2023 Stress Test Treadmill 09/30/2023 Casie Established Visit 11/30/2023 EGD/Lap Felicity w/IOC 02/28/2024 Cholangiography Intraoperative 02/28/20 24 EGD/Lap Felicity w/IOC 02/28/2024 Cholangiography Intraoperative 02/28/20 24 NM Hepatobiliary Gall Bladder (90075) 0 02/02/2024 EGD/Lap Felicity w/IOC 09/04/2024 Cholangiography Intraoperative 09/05/19 25 EGD/Lap Felicity w/IOC 09/04/2024 Cholangiography Intraoperative 09/05/19 25 US Abdomen Complete (61041) 01/17/2024 Encounters Encounter Diagnosis Start Date Code Code Sys tem Abnormal findings on diagnos tic imaging of other parts of digestive tract 02/02/2024 SNOMED-CT Personal Care Team Section Performer Name Performer Role Active Date Inactive CHELSEA Felton PCP - Primary care physician 2023-11-30
--- OUTSIDE RECORDS SUMMARY | 2024-10-20 10:42 | XMS_ITS | Clinical Summary ---
Author Organization [facility] Address [address] [place] [phone] Care Team Providers Care Compressed Gas Equipment Mechanic Name Role Phone Heather Garcia Primary Care Provider [phone] Allergies Active Allergy Reactions Criticality Noted Date [...] on file Sexual Orientation Not on file Obstetrics History Last Filed Vital Signs Vital Sign Reading Time Taken Comments Blood Pressure 140/87 07/11/2024 8:11 AM [employer] Pulse 101 07/11/2024 8:11 AM [employer] Temperature 37.1 C (98.7 F) 07/11/2024 8:11 AM [employer] Respiratory Rate - - Oxygen Saturation - - Inhaled Oxygen Concentration - - Weight 66.7 kg (147 lb) 07/11/2024 8:11 AM [employer] Height 170.2 cm (5' 7 ) 07/11/2024 8:11 AM [employer] Body Mass Index 23.02 07/11/2024 8:11 AM [employer] Plan of Treatment Health Maintenance Due Date Last Done Comments Breast Cancer Screening-Mammogram 1964 Cervical Cancer Screening 1964 Colon Cancer Screening-Colonoscopy 1964 Depression Screening 1964 Hepatitis C Screening 1964 DTaP/Tdap/Td Vaccine (1 - Tdap) 12/29/1975 Hepatitis B Screening 1982 Regular Well Visit/Exam 18-64 1982 Pneumococcal vaccine <65 (1 of 2 - PCV) 12/29/1983 Zoster Vaccine (1 of 2) 2014 Covid-19 Vaccine (3 - season) 2024, 01/09/2021 Influenza Vaccine (#1) [address] [facility] Care Teams Compressed Gas Equipment Mechanic Relationship Specialty Start Date End Date Heather Garcia PA [address] [place] [address] PCP - General Emergency Medicine 07/11/24
--- OUTSIDE RECORDS SUMMARY | 2024-10-20 10:42 | XMS_ITS ---
Author Organization Unknown Address [address] [place] [address] [phone] Phone Care Team Providers Care Agricultural Mechanic Name Role Phone TYSON Kothari Attending Unavailable NO PCP Primary Unavailable Immunization Immunization Date Status Additional Notes Code Code System COVID-19, mRNA, LNP-S, PF, 1 00 mcg/0.5mL dose or 50 mcg/0.25mL dose 01/09/2021 Completed 207 CVX COVID-19, mRNA, LNP-S, PF, 1 00 mcg/0.5mL dose or 50 mcg/0.25mL dose 02/11/2021 Completed 207 CVX Results US ABDOMEN COMPLETE - Comple natalie: 01/17/2024 08:45 LOINC: EXAM DESCRIPTION: US ABDOMEN COMPLETE REASON FOR STUDY: Abdominal pain/post prandial pain for 3-4 months. TECHNIQUE: Grayscale images acquired of the abdomen and recorded on PACS. Additional selected color Doppler and spectral images recorded. COMPARISON: None FINDINGS: PANCREAS: Visualized portions of the pancreas are within normal limits. Portions of the pancreatic body and tail are obscured due to bowel gas. LIVER: No masses. Echotexture and echogenicity normal. Main portal vein is patent with antegrade flow. GALLBLADDER: The gallbladder appears unremarkable. No cholelithiasis. No gallbladder wall thickening or pericholecystic fluid. Negative sonographic Morris sign. BILIARY: There is no intrahepatic or extrahepatic biliary ductal dilatation. Common bile duct measures 6 mm, at the upper limits of normal . INFERIOR VENA CAVA: Unremarkable AORTA: No aneurysm. RIGHT KIDNEY: Normal size. Normal echogenicity. No solid mass or cyst. No hydronephrosis. Measures 11.2 cm in length. LEFT KIDNEY: Normal size. Normal echogenicity. Tiny hypoechoic focus in the upper pole measures 7 mm, likely a cyst. No hydronephrosis. The left kidney measures 10.6 cm in length. SPLEEN: Normal size. No solid masses. PERITONEAL AND PLEURAL SPACES: No ascites or effusions. OTHER: No other significant finding. IMPRESSION: ? ? No acute abnormality. ? ? Subcentimeter cyst in the upper pole of the left kidney. THIS IS AN ELECTRONICALLY VERIFIED FINAL REPORT 01/17/2024 12:58 PM - Electronically signed by Tereza Rajput M.D. TW: RAHAT Report ID: [id number] Reading Location: [id number] Social History Type Status Start Date End Date Code Code Syst em Smoking History Current every day smoker 105048679 SNOMED CT Sex Female Medications Medication Start Date End Date Route Frequency Dose Code Code System Medication Instructions Home Meds HYDROcodone bitartrate-acetaminophen 5MG-325MG Oral Tablet 09/04/2024 Unknown BY MOUTH NEEDED EVERY 4 HOURS 1 TABLET 148620 RxNorm TAKE 1 TABLET BY MOUTH NEEDED EVERY 4 HOURS FOR PAIN Airsupra 90 MCG/1 Actuation-80 MCG/1 Actuation Inhalation Aerosol Powder 09/04/2024 Unknown INHALA TION ONCE A DAY 1 unit(s) 3145151 RxNorm 1 EACH INHALAT ION ONCE A DAY Alendronate Sod 70MG Oral Tablet 09/04/2024 Unknown ORAL ONCE A WEEK 70 MILLIGR AMS RxNorm TAKE 70 MILLIGR AMS ORAL ONCE A WEEK Cymbalta 30MG Oral Capsule, Delayed Release 09/04/2024 Unknown ORAL ONCE A DAY 30 MILLIGR AMS 577666 RxNorm TAKE 30 MILLIGR AMS ORAL ONCE A DAY Cymbalta 60MG Oral Capsule, Delayed Release 09/04/2024 Unknown ORAL ONCE A DAY 60 MILLIGR AMS 250721 RxNorm TAKE 60 MILLIGR AMS ORAL ONCE A DAY Gabapentin 600MG Oral Tablet 09/04/2024 Unknown ORAL FOUR TIMES A DAY 900 MILLIGR AMS 316861 RxNorm TAKE 900 MILLIGR AMS ORAL FOUR TIMES A DAY Hyzaar 100MG-25MG Oral Tablet 09/04/2024 Unknown ORAL ONCE A DAY 1 unit(s) 652235 RxNorm TAKE 1 EACH ORAL ONCE A [...] 09/04/2024 Unknown ORAL NEEDED 25 MILLIGR AMS 791146 RxNorm TAKE 25 MILLIGR AMS ORAL NEEDED Symbicort 80/4.5 80MCG-4.5MCG/1 Actua Inhalation Aerosol Liquid 09/04/2024 Unknown INHALA TION TWICE A DAY 2 unit(s) 6372701 RxNorm 2 EACH INHALAT ION TWICE A DAY Ventolin HFA 0.09MG/1Actuation Inhalation Suspension 09/04/2024 Unknown INHALA TION NEEDED EVERY 4 HOURS 2 unit(s) 960644 RxNorm 2 EACH INHALAT ION NEEDED EVERY 4 HOURS Vitamin D 2000 IU Oral Capsule, Liquid Filled 09/04/2024 Unknown ORAL ONCE A DAY 2000 IU 468690 RxNorm TAKE 2000 IU ORAL ONCE A DAY diphenhydrAMINE 25MG Oral Capsule 09/04/2024 Unknown ORAL NEEDED EVERY 6 HOURS 25 MILLIGR AMS 8275363 RxNorm TAKE 25 MILLIGR AMS ORAL NEEDED EVERY 6 HOURS Ferrous Sulfate 325 MG Oral Tablet, Enteric Coated 09/04/2024 Unknown BY MOUTH ONCE A DAY 1 TABLET 017774 RxNorm TAKE 1 TABLET BY MOUTH ONCE [...] Date Status Code Code System FIBROMYALGIA active 156912494 SNOMED- CT Allergies and Adverse Reactions Allergy Substance Reaction Severity Start Date Concern Status Code Code System 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 (SNOMED-CT: null) Active 225238 RxNorm CONTRAST MEDIA, IODINE RELATED anaphylaxis (SNOMED-CT: null) Active 963753926 SNOMED-CT CONTRAST ALLERGY PREMED PACK Moderate Active Plan of Treatment Casie New Patient Visit 09/28/2023 Stress Test Treadmill 09/30/2023 Casie Established Visit 11/30/2023 EGD/Lap Felicity w/IOC 02/28/2024 Cholangiography Intraoperative 02/28/20 24 EGD/Lap Felicity w/IOC 02/28/2024 Cholangiography Intraoperative 02/28/20 24 NM Hepatobiliary Gall Bladder (35693) 0 02/02/2024 EGD/Lap Felicity w/IOC 09/04/2024 Cholangiography Intraoperative 09/05/19 25 EGD/Lap Felicity w/IOC 09/04/2024 Cholangiography Intraoperative 09/05/19 25 US Abdomen Complete (65715) 01/17/2024 Encounters Encounter Diagnosis Start Date Code Code Sys tem Cyst of kidney, acquired 01/17/2024 SNO MED-CT Personal Care Team Section Performer Name Performer Role Active Date Inactive CHELSEA Felton PCP - Primary care physician 2023-11-30 Imaging Narrative Notes
--- OUTSIDE RECORDS SUMMARY | 2024-10-20 10:42 | XMS_ITS ---
Author Organization Unknown Address [address] [place] [address] [phone] Phone Care Team Providers Care Pipe Fitter Name Role Phone TYSON Kothari Attending Unavailable SJ MELGAR Primary Unavailable Immunization Immunization Date Status Additional Notes Code Code System COVID-19, mRNA, LNP-S, PF, 1 00 mcg/0.5mL dose or 50 mcg/0.25mL dose 01/09/2021 Completed 207 CVX COVID-19, mRNA, LNP-S, PF, 1 00 mcg/0.5mL dose or 50 mcg/0.25mL dose 02/11/2021 Completed 207 CVX Results CBC W/ DIFF - Collect Date/T marcos: 08/31/2024 14:40 [facility] ID: [id number] [place], [place], [id number] LOINC: 32275-1 Test Value Unit Reference Range Code Code System Flag WBC 7.7 10^3uL L=4.8 H=10.8 RBC 4.16 10^6uL L=4.20 H=5.40 L HEMOGLOBIN 13.2 g/dL L=12.0 H=16.0 718-7 LOINC HEMATOCRIT 39.2 VOL% L=37.0 H=47.0 4544-3 LOINC MCV 94.2 fL L=81.0 H=99.0 MCH 31.7 pg L=27.0 H=32.0 MCHC 33.7 g/dL L=32.0 H=36.0 PLATELETS 298 10^3uL L=100 H=400 23623-6 LOINC RDW 12.5 % L=11.7 H=15.5 %GRAN 62.8 % L=40.0 H=70.0 23557-3 LOINC %LYMPH 26.2 % L=20.0 H=45.0 736-9 LOINC %MONO 10.5 % L=2.0 H=10.0 96496-7 LOINC H %EOS 0.0 % L=0.0 H=6.0 713-8 LOINC %BASO 0.4 % L=0.0 H=3.0 706-2 LOINC #NEUT 4.8 10^3uL L=1.9 H=7.6 51772-0 LOINC #LYMPH 2.0 10^3uL L=0.9 H=4.9 85717-4 LOINC #MONO 0.8 10^3uL L=0.1 H=0.9 21746-3 LOINC #EOS 0.0 10^3uL L=0.0 H=0.6 712-0 LOINC #BASO 0.03 10^3uL L=0.00 H=0.10 64709-9 LOINC #IM GRANS 0.0 10^3uL L=0.0 H=7.0 28460-9 LOINC %IM GRANS 0.1 % L=0.0 H=5.0 94492-4 LOINC %NRB 0.0 L=0.0 H=0.2 01763-6 LOINC #NRB 0.000 L=0.000 H=0.012 15501-5 LOINC MANUAL DIFF NOT INDICATED RBC MORPH NOT INDICATED Social History Type Status Start Date End Date Code Code Syst em Smoking History Current every day smoker 537279043 SNOMED CT Sex Female Medications Medication Start Date End Date Route Frequency Dose Code Code System Medication Instructions Home Meds HYDROcodone bitartrate-acetaminophen 5MG-325MG Oral Tablet 09/04/2024 Unknown BY MOUTH NEEDED EVERY 4 HOURS 1 TABLET 309250 RxNorm TAKE 1 TABLET BY MOUTH NEEDED EVERY 4 HOURS FOR PAIN Airsupra 90 MCG/1 Actuation-80 MCG/1 Actuation Inhalation Aerosol Powder 09/04/2024 Unknown INHALA TION ONCE A DAY 1 unit(s) 4601780 RxNorm 1 EACH INHALAT ION ONCE A DAY Alendronate Sod 70MG Oral Tablet 09/04/2024 Unknown ORAL ONCE A WEEK 70 MILLIGR AMS RxNorm TAKE 70 MILLIGR AMS ORAL ONCE A WEEK Cymbalta 30MG Oral Capsule, Delayed Release 09/04/2024 Unknown ORAL ONCE A DAY 30 MILLIGR AMS 159586 RxNorm TAKE 30 MILLIGR AMS ORAL ONCE A DAY Cymbalta 60MG Oral Capsule, Delayed Release 09/04/2024 Unknown ORAL ONCE A DAY 60 MILLIGR AMS 653962 RxNorm TAKE 60 MILLIGR AMS ORAL ONCE A DAY Gabapentin 600MG Oral Tablet 09/04/2024 Unknown ORAL FOUR TIMES A DAY 900 MILLIGR AMS 056624 RxNorm TAKE 900 MILLIGR AMS ORAL FOUR TIMES A DAY Hyzaar 100MG-25MG Oral Tablet 09/04/2024 Unknown ORAL ONCE A DAY 1 unit(s) 188239 RxNorm TAKE 1 EACH ORAL ONCE A [...] 09/04/2024 Unknown ORAL NEEDED 25 MILLIGR AMS 705627 RxNorm TAKE 25 MILLIGR AMS ORAL NEEDED Symbicort 80/4.5 80MCG-4.5MCG/1 Actua Inhalation Aerosol Liquid 09/04/2024 Unknown INHALA TION TWICE A DAY 2 unit(s) 4691366 RxNorm 2 EACH INHALAT ION TWICE A DAY Ventolin HFA 0.09MG/1Actuation Inhalation Suspension 09/04/2024 Unknown INHALA TION NEEDED EVERY 4 HOURS 2 unit(s) 816930 RxNorm 2 EACH INHALAT ION NEEDED EVERY 4 HOURS Vitamin D 2000 IU Oral Capsule, Liquid Filled 09/04/2024 Unknown ORAL ONCE A DAY 2000 IU 800171 RxNorm TAKE 2000 IU ORAL ONCE A DAY diphenhydrAMINE 25MG Oral Capsule 09/04/2024 Unknown ORAL NEEDED EVERY 6 HOURS 25 MILLIGR AMS 9966782 RxNorm TAKE 25 MILLIGR AMS ORAL NEEDED EVERY 6 HOURS Ferrous Sulfate 325 MG Oral Tablet, Enteric Coated 09/04/2024 Unknown BY MOUTH ONCE A DAY 1 TABLET 962289 RxNorm TAKE 1 TABLET BY MOUTH ONCE [...] Date Status Code Code System FIBROMYALGIA active 961689329 SNOMED- CT Allergies and Adverse Reactions Allergy Substance Reaction Severity Start Date Concern Status Code Code System 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 (SNOMED-CT: null) Active 225041 RxNorm CONTRAST MEDIA, IODINE RELATED anaphylaxis (SNOMED-CT: null) Active 265450876 SNOMED-CT CONTRAST ALLERGY PREMED PACK Moderate Active Plan of Treatment Casie New Patient Visit 09/28/2023 Stress Test Treadmill 09/30/2023 Casie Established Visit 11/30/2023 EGD/Lap Felicity w/IOC 02/28/2024 Cholangiography Intraoperative 02/28/20 24 EGD/Lap Felicity w/IOC 02/28/2024 Cholangiography Intraoperative 02/28/20 24 NM Hepatobiliary Gall Bladder (95609) 0 02/02/2024 EGD/Lap Felicity w/IOC 09/04/2024 Cholangiography Intraoperative 09/05/19 25 EGD/Lap Felicity w/IOC 09/04/2024 Cholangiography Intraoperative 09/05/19 25 US Abdomen Complete (85907) 01/17/2024 Encounters Encounter Diagnosis Start Date Code Code Sys tem Anemia, unspecified 08/31/2024 SNOMED-C T Personal Care Team Section Performer Name Performer Role Active Date Inactive CHELSEA Felton PCP - Primary care physician 2023-11-30
--- OUTSIDE RECORDS SUMMARY | 2024-10-20 10:43 | XMS_ITS ---
Author Organization Unknown Address [address] [place] [address] [phone] Phone Care Team Providers Care Sheet Metal Smith Name Role Phone GRACIELA Bowles Attending Ammon MELGAR Primary Unavailable Immunization Immunization Date Status Additional Notes Code Code System COVID-19, mRNA, LNP-S, PF, 1 00 mcg/0.5mL dose or 50 mcg/0.25mL dose 01/09/2021 Completed 207 CVX COVID-19, mRNA, LNP-S, PF, 1 00 mcg/0.5mL dose or 50 mcg/0.25mL dose 02/11/2021 Completed 207 CVX Social History Type Status Start Date End Date Code Code Syst em Smoking History Current every day smoker 853695508 SNOMED CT Sex Female Vital Signs Vital Sign Value Unit [place] Value [place] Unit Date/Time Recent/Initial? Code Code System Body Mass Index 21.61 kg/m2 02/28/2024 09:48 Most Recent 59216 -5 LOINC Body Mass Index 21.93 kg/m2 02/22/2024 09:40 Initial 14234 -5 LOINC Systolic Blood Pressure 136 mm[Hg] 02/28/2024 09:49 Initial 8480- 6 LOINC Diastolic Blood Pressure 73 mm[Hg] 02/28/2024 09:49 Initial 8462- 4 LOINC Body Surface Area 1.72 m2 02/28/2024 09:48 Most Recent 3140- 1 LOINC Body Surface Area 1.73 m2 02/22/2024 09:40 Initial 3140- 1 LOINC Height 170.180 0 cm 67.00 in 02/28/2024 09:48 Most Recent 8302- 2 LOINC Height 170.180 0 cm 67.00 in 02/22/2024 09:40 Initial 8302- 2 [facility] O2 Saturation 97 % 2023 09:49 Initial 11385 -5 [facility] Pulse 96.0 /min 02/28/2024 09:49 Initial 8867- 4 [facility] Respiration 18 /min 02/28/20 09:49 Initial 9279- 1 INC Temperature 36.3 Melinda 97.3 F 02/28/20 09:49 Initial 8310- 5 INC Weight 62.60 kg 138.00 lbs 02/28/2024 09:48 Most Recent 76176 -7 INC Weight 63.50 kg 140.00 lbs 02/22/2024 09:40 Initial 26579 -7 [facility] Medications Medication Start Date End Date Route Frequency Dose Code Code System Medication Instructions Home Meds HYDROcodone bitartrate-acetaminophen 5MG-325MG Oral Tablet 09/04/2024 Unknown BY MOUTH NEEDED EVERY 4 HOURS 1 TABLET 391597 RxNorm TAKE 1 TABLET BY MOUTH NEEDED EVERY 4 HOURS FOR PAIN Airsupra 90 MCG/1 Actuation-80 MCG/1 Actuation Inhalation Aerosol Powder 09/04/2024 Unknown INHALA TION ONCE A DAY 1 unit(s) 9151985 RxNorm 1 EACH INHALAT ION ONCE A DAY Alendronate Sod 70MG Oral Tablet 09/04/2024 Unknown ORAL ONCE A WEEK 70 MILLIGR AMS RxNorm TAKE 70 MILLIGR AMS ORAL ONCE A WEEK Cymbalta 30MG Oral Capsule, Delayed Release 09/04/2024 Unknown ORAL ONCE A DAY 30 MILLIGR AMS 933618 RxNorm TAKE 30 MILLIGR AMS ORAL ONCE A DAY Cymbalta 60MG Oral Capsule, Delayed Release 09/04/2024 Unknown ORAL ONCE A DAY 60 MILLIGR AMS 244819 RxNorm TAKE 60 MILLIGR AMS ORAL ONCE A DAY Gabapentin 600MG Oral Tablet 09/04/2024 Unknown ORAL FOUR TIMES A DAY 900 MILLIGR AMS 331138 RxNorm TAKE 900 MILLIGR AMS ORAL FOUR TIMES A DAY Hyzaar 100MG-25MG Oral Tablet 09/04/2024 Unknown ORAL ONCE A DAY 1 unit(s) 651075 RxNorm TAKE 1 EACH ORAL ONCE A DAY LORazepam 0.5 MG Oral Tablet 09/04/2024 Unknown ORAL NEEDED 0.5 MILLIGR AMS 980849 RxNorm TAKE 0.5 MILLIGR AMS ORAL NEEDED [...] 09/04/2024 Unknown ORAL NEEDED 25 MILLIGR AMS 329672 RxNorm TAKE 25 MILLIGR AMS ORAL NEEDED Symbicort 80/4.5 80MCG-4.5MCG/1 Actua Inhalation Aerosol Liquid 09/04/2024 Unknown INHALA TION TWICE A DAY 2 unit(s) 4369769 RxNorm 2 EACH INHALAT ION TWICE A DAY Ventolin HFA 0.09MG/1Actuation Inhalation Suspension 09/04/2024 Unknown INHALA TION NEEDED EVERY 4 HOURS 2 unit(s) 605863 RxNorm 2 EACH INHALAT ION NEEDED EVERY 4 HOURS Vitamin D 2000 IU Oral Capsule, Liquid Filled 09/04/2024 Unknown ORAL ONCE A DAY 2000 IU 710709 RxNorm TAKE 2000 IU ORAL ONCE A DAY diphenhydrAMINE 25MG Oral Capsule 09/04/2024 Unknown ORAL NEEDED EVERY 6 HOURS 25 MILLIGR AMS 2146600 RxNorm TAKE 25 MILLIGR AMS ORAL NEEDED EVERY 6 HOURS Ferrous Sulfate 325 MG Oral Tablet, Enteric Coated 09/04/2024 Unknown BY MOUTH ONCE A DAY 1 TABLET 556196 RxNorm TAKE 1 TABLET BY MOUTH ONCE [...] Date Status Code Code System FIBROMYALGIA active 217182724 SNOMED- CT Allergies and Adverse Reactions Allergy Substance Reaction Severity Start Date Concern Status Code Code System 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 (SNOMED-CT: null) Active 100123 RxNorm CONTRAST MEDIA, IODINE RELATED anaphylaxis (SNOMED-CT: null) Active 945517227 SNOMED-CT CONTRAST ALLERGY PREMED PACK Moderate Active Plan of Treatment [facility] New Patient Visit 09/28/2023 Stress Test Treadmill 09/30/2023 Casie Established Visit 11/30/2023 EGD/Lap Felicity w/IOC 02/28/2024 Cholangiography Intraoperative 02/28/20 24 EGD/Lap Felicity w/IOC 02/28/2024 Cholangiography Intraoperative 02/28/20 24 NM Hepatobiliary Gall Bladder (20498) 0 02/02/2024 EGD/Lap Felicity w/IOC 09/04/2024 Cholangiography Intraoperative 09/05/19 25 EGD/Lap Felicity w/IOC 09/04/2024 Cholangiography Intraoperative 09/05/19 25 US Abdomen Complete (60942) 01/17/2024 Encounters Encounter Diagnosis Start Date Code Code Sys tem Unspecified abnormalities of breathing 02/28/2024 SNOMED-CT Personal Care Team Section Performer Name Performer Role Active Date Inactive CHELSEA Felton PCP - Primary care physician 2023-11-30
--- OUTSIDE RECORDS SUMMARY | 2024-10-20 10:43 | XMS_ITS | Encounter Summary ---
Author Organization [facility] Address [address] [place] [address] Care Team Providers Care Metrology Manager Name Role Phone Heather Garcia Primary Care Provider [phone] Encounter Details Date Type Department Care Team (Late st Contact Info) Description 11/17/2023 [employer] 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 Answer Date of Assessment Author Status No 04/21/2022 6:24 PM Yamini Roberts RN Active * Because of a physical, mental, or emotional condition, do you have difficulty doing errands alone such as visiting a doctor's office or shopping? Answer Date of Assessment Author Status No 04/21/2022 6:24 PM Yamini Roberts RN Active documented as of this encounter Mental Status * Because of a physical, mental, or emotional condition, do you have serious difficulty concentrating, remembering, or making decisions? Answer Entry Date Author Status No 04/21/2022 6:24 PM Yamini Roberts RN Active documented in this encounter Plan of Treatment Not on file documented as of this encounter Goals Goal Patient Goal Type Associated Problems Recent Progress Patient-Stated? Author Patient will return to prior living situation and remain independent in ADLs upon discharge from hospital General No Tran Estrada explosive operator supervisor - family caregiver with be involved in care transitions and discharge planning Lifestyle No Veda Victoria RN documented as of this encounter Visit Diagnoses Not on filedocumented in this encounter Care Teams Metrology Manager Relationship Specialty Start Date End Date Heather Garcia PA [address] [place] [address] PCP - General PHYSICIAN LIFE SCIENCE TECHNICIAN 11/23/22 documented as of this encounter
--- OUTSIDE RECORDS SUMMARY | 2024-10-20 10:44 | XMS_ITS ---
Author Organization Unknown Address [address] [place] [phone] Phone Care Team Providers Care Sports Book Writer Name Role Phone TYSON Kothari Physician Support Coordinator Surgeon Unavailable GRACIELA Bowles Attending Unavailable MARCELLO SALINAS CRNA Unavailable SHAKIRA ALCAZAR Primary Unavailable Immunization Immunization [...] em Smoking History Current every day smoker 834933597 SNOMED CT Sex Female Vital Signs Vital Sign Value Unit Stur[facility] Value [facility] Unit Date/Time Recent/Initial? Code Code System Body Mass Index 23.81 kg/m2 09/04/2024 09:14 Most Recent 31359 -5 LOINC Body Mass Index 23.81 kg/m2 09/01/2024 10:23 Initial 68631 -5 LOINC Systolic Blood Pressure 139 mm[Hg] 09/04/2024 09:20 Initial 8480- 6 LOINC Diastolic Blood Pressure 71 mm[Hg] 09/04/2024 09:20 Initial 8462- 4 LOINC Body Surface Area 1.81 m2 09/04/2024 09:14 Most Recent 3140- 1 LOINC Body Surface Area 1.81 m2 09/01/2024 10:23 Initial 3140- 1 LOINC Height 170.180 0 cm 67.00 in 09/04/2024 09:14 Most Recent 8302- 2 LOINC Height 170.180 0 cm 67.00 in 09/01/2024 10:23 Initial 8302- 2 INC O2 Saturation 98 % 2024 09:20 Initial 15571 -5 LOINC Pulse 97.0 /min 09/04/2024 09:20 Initial 8867- 4 LOINC Respiration 18 /min 09/05/19 09:20 Initial 9279- 1 LOINC Temperature 36.6 Melinda 97.8 F 09/05/19 09:20 Initial 8310- 5 LOINC Weight 68.95 kg 152.00 lbs 09/04/2024 09:14 Most Recent 56724 -7 LOINC Weight 68.95 kg 152.00 lbs 09/01/2024 10:23 Initial 04846 -7 [facility] Medications Medication Start Date End Date Route Frequency Dose Code Code System Medication Instructions Home Meds HYDROcodone bitartrate-acetaminophen 5MG-325MG Oral Tablet 09/04/2024 Unknown BY MOUTH NEEDED EVERY 4 HOURS 1 TABLET 070669 RxNorm TAKE 1 TABLET BY MOUTH NEEDED EVERY 4 HOURS FOR PAIN Airsupra 90 MCG/1 Actuation-80 MCG/1 Actuation Inhalation Aerosol Powder 09/04/2024 Unknown INHALA TION ONCE A DAY 1 unit(s) 0612581 RxNorm 1 EACH INHALAT ION ONCE A DAY Alendronate Sod 70MG Oral Tablet 09/04/2024 Unknown ORAL ONCE A WEEK 70 MILLIGR AMS RxNorm TAKE 70 MILLIGR AMS ORAL ONCE A WEEK Cymbalta 30MG Oral Capsule, Delayed Release 09/04/2024 Unknown ORAL ONCE A DAY 30 MILLIGR AMS 704419 RxNorm TAKE 30 MILLIGR AMS ORAL ONCE A DAY Cymbalta 60MG Oral Capsule, Delayed Release 09/04/2024 Unknown ORAL ONCE A DAY 60 MILLIGR AMS 468279 RxNorm TAKE 60 MILLIGR AMS ORAL ONCE A DAY Gabapentin 600MG Oral Tablet 09/04/2024 Unknown ORAL FOUR TIMES A DAY 900 MILLIGR AMS 906833 RxNorm TAKE 900 MILLIGR AMS ORAL FOUR TIMES A DAY Hyzaar 100MG-25MG Oral Tablet 09/04/2024 Unknown ORAL ONCE A DAY 1 unit(s) 181498 RxNorm TAKE 1 EACH ORAL ONCE A DAY LORazepam 0.5 MG Oral Tablet 09/04/2024 Unknown ORAL NEEDED 0.5 MILLIGR AMS 655262 RxNorm TAKE 0.5 MILLIGR AMS ORAL NEEDED [...] 09/04/2024 Unknown ORAL NEEDED 25 MILLIGR AMS 908332 RxNorm TAKE 25 MILLIGR AMS ORAL NEEDED Symbicort 80/4.5 80MCG-4.5MCG/1 Actua Inhalation Aerosol Liquid 09/04/2024 Unknown INHALA TION TWICE A DAY 2 unit(s) 3027814 RxNorm 2 EACH INHALAT ION TWICE A DAY Ventolin HFA 0.09MG/1Actuation Inhalation Suspension 09/04/2024 Unknown INHALA TION NEEDED EVERY 4 HOURS 2 unit(s) 560182 RxNorm 2 EACH INHALAT ION NEEDED EVERY 4 HOURS Vitamin D 2000 IU Oral Capsule, Liquid Filled 09/04/2024 Unknown ORAL ONCE A DAY 2000 IU 327615 RxNorm TAKE 2000 IU ORAL ONCE A DAY diphenhydrAMINE 25MG Oral Capsule 09/04/2024 Unknown ORAL NEEDED EVERY 6 HOURS 25 MILLIGR AMS 7129392 RxNorm TAKE 25 MILLIGR AMS ORAL NEEDED EVERY 6 HOURS Ferrous Sulfate 325 MG Oral Tablet, Enteric Coated 09/04/2024 Unknown BY MOUTH ONCE A DAY 1 TABLET 921960 RxNorm TAKE 1 TABLET BY MOUTH ONCE [...] Name Date Status Code Code Syste m Laparoscopy, surgical; cholecystectomy 09/04/2024 complete d 15448 CPT Esophagogastroduodenoscopy, flexible, transoral; with biopsy, single or mu 09/04/2024 completed 02341 CPT Anesthesia for intraperitone al procedures in upper abdomen including lapar 09/04/2024 completed 55871 CP T Laparoscopy, surgical; cholecystectomy 09/04/2024 complete d 50943 CPT Problems Problem Start Date Resolved Date Status Code Code System FIBROMYALGIA active 508971532 SNOMED- CT Allergies and Adverse Reactions Allergy Substance Reaction Severity Start Date Concern Status Code Code System 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 (SNOMED-CT: null) Active 078566 RxNorm CONTRAST MEDIA, IODINE RELATED anaphylaxis (SNOMED-CT: null) Active 849923017 SNOMED-CT CONTRAST ALLERGY PREMED PACK Moderate Active Plan of Treatment Casie New Patient Visit 09/28/2023 Stress Test Treadmill 09/30/2023 Casie Established Visit 11/30/2023 EGD/Lap Felicity w/IOC 02/28/2024 Cholangiography Intraoperative 02/28/20 24 EGD/Lap Felicity w/IOC 02/28/2024 Cholangiography Intraoperative 02/28/20 24 NM Hepatobiliary Gall Bladder (27659) 0 02/02/2024 EGD/Lap Felicity w/IOC 09/04/2024 Cholangiography Intraoperative 09/05/19 25 EGD/Lap Felicity w/IOC 09/04/2024 Cholangiography Intraoperative 09/05/19 25 US Abdomen Complete (12826) 01/17/2024 Encounters Encounter Diagnosis Start Date Code Code Sys tem Chronic cholecystitis 09/04/2024 SNOMED -CT Personal Care Team Section Performer Name Performer Role Active Date Inactive CHELSEA Felton PCP - Primary care physician 2023-11-30
[2024-10-20 11:02] LABS: Basophils Absolute Auto 0.11 K/mm3 (0.00-0.10); Basophils Percent Auto 1.3 % (0.0-1.0); Eosinophils Percent Auto 5.8 % (1.0-6.0); Hemoglobin 12.9 g/dL (12.0-15.0); Immature Granulocyte Absolute 0.06 K/mm3 (0.00-0.00); Immature Granulocyte Percent A 0.7 % (0.0-0.0); Lymphocytes Absolute Auto 1.63 K/mm3 (1.10-4.50); Lymphocytes Percent Auto 18.9 % (18.0-42.0); Mean Corpuscular HGB Conc 33.1 g/dL (32-36); Mean Corpuscular Hemoglobin 30.6 pg (27.0-31.0); Mean Corpuscular Volume 92.6 fL (78.0-102.0); Mean Platelet Volume 7.8 fl (9.2-11.8); Monocytes Absolute Auto 0.79 K/mm3 (0.10-0.90); Monocytes Percent Auto 9.1 % (2.0-11.0); Neutrophils Absolute Auto 5.55 K/mm3 (1.70-7.20); Neutrophils Percent Auto 64.2 % (50.0-70.0); Platelet Count Result 318 K/mm3 (150-420); Red Blood Count 4.21 M/mm3 (4.20-5.40); Red Cell Distribution Width 12.2 % (11.6-14.4); White Blood Count 8.6 K/mm3 (4.8-10.8)
[2024-10-20 11:21] LABS: Anion Gap 4 mmol/L (4-12); Blood Urea Nitrogen 17 mg/dL (7-17); Calcium 9.2 mg/dL (8.4-10.2); Carbon Dioxide 26 mmol/L (22-30); Chloride 100 mmol/L (98-107); Estimated Glomerular Filt Rate > 60; Glucose 80 mg/dL (65-110); Osmolality Calculated 270 mOsm/kg (285-295); Potassium 4.1 mmol/L (3.4-5.0); Sodium 130 mmol/L (137-145)
== END 2024-10-20 10:38 | disposition home or self-care (01) ==
PROVIDERS: Visit Provider Physician Assistant
DX: R60.9 Edema, unspecified (principal); J82.83 Eosinophilic asthma
CPT/HCPCS: 36415; 80048; 85025